=== PATIENT | male | born 1935 | race Caucasian/White ===

== ENCOUNTER → 2019-12-13 09:53 | Outpatient (BNVA) | payer MEDICARE, OTHER, SELFPAY | PROVIDERS: Family Provider Family Medicine; PCP Family Medicine; Visit Provider Nurse Practitioner Family | DX: I48.11 Longstanding persistent atrial fibrillation (principal); R73.9 Hyperglycemia, unspecified | CPT/HCPCS: 36416; 82962; 83036 ==

== ENCOUNTER 2020-06-01 11:11 | Emergency (ER) | payer MEDICARE, OTHER, SELFPAY ==
[2020-06-01] VITALS (8 sets, daily range): BP systolic 115–165; BP diastolic 69–102; PULSE 81–94; RESP 16–24; TEMP 36.6–36.8; O2SAT 92–99; BMI 26.6
--- NOTE | 2020-06-01 11:21 | CTR_ITS ---
PROCEDURE INFORMATION: Exam: CT Head Without Contrast Exam date and time: 06/01/2020 11:23 AM Age: 85 years old Clinical indication: Altered mental status/memory loss; Confusion or disorientation; Prior surgery; Surgery date: 6+ months; Surgery type: Carotid; Patient HX: HX of stroke, confusion started last night; Additional info: TIA TECHNIQUE: Imaging protocol: Computed tomography of the head without contrast. Radiation optimization: All CT scans at this facility use at least one of these dose optimization techniques: automated exposure control; mA and/or kV adjustment per patient size (includes targeted exams where dose is matched to clinical indication); or iterative reconstruction. COMPARISON: No relevant prior studies available. RADIATION DOSE METRICS: Total DLP (mGy-cm): 751.44 FINDINGS: Brain: No hemorrhage. 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 No mass effect. Ventricles: Normal. No ventriculomegaly. Bones/joints: Unremarkable. No acute fracture. Sinuses: No acute sinusitis. Mastoid air cells: Unremarkable. Soft tissues: Unremarkable. CT/CT head wo con* [id number] IMPRESSION: No acute intracranial abnormality. Radiation Dose CTDIVOL = (mGy): DLP = 751.44 (mGy-cm)
--- NOTE | 2020-06-01 11:22 | XRR_ITS ---
PROCEDURE INFORMATION: Exam: XR Chest, 1 View Exam date and time: 06/01/2020 11:43 AM Age: 85 years old Clinical indication: Other: TIA; Weakness; Patient HX: TIA; Confusion, weakness, numbness. HX of stroke TECHNIQUE: Imaging protocol: XR of the chest Views: 1 view. COMPARISON: No relevant prior studies available. FINDINGS: Lungs: Unremarkable. No consolidation. Pleural space: Unremarkable. No pleural effusion. No pneumothorax. Heart/Mediastinum: Borderline minimal cardiomegaly. Small hiatal hernia. Bones/joints: No acute findings. XR/XR chest 1V portable [id number] IMPRESSION: No acute findings.
--- NOTE | 2020-06-01 11:22 | ECG_ITS ---
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 Measurements Intervals [place] Rate: 68 P: [place]: -1 QRS: 76 QRSD: 100 T: 42 QT: 404 QTc: 432 Interpretive Statements ATRIAL FIBRILLATION ABNORMAL RHYTHM ECG No previous ECG available for comparison Electronically Signed On 06-01-2020 23:33:39 CDT by Tree Wakefield M.D. [id number]
[2020-06-01 11:46] LABS: Basophils % 0.4 %; Eosinophils # 0.2 10^3/uL (0.0-0.8); Eosinophils % 3.2 %; Hematocrit 47.1 % (42.0-52.0); Hemoglobin 14.9 g/dL (11.7-16.6); Lymphocytes # 1.2 10^3/uL (0.8-4.8); Lymphocytes % 20.9 %; Mean Corpuscular HGB Conc 31.6 g/dL (30.0-36.0); Mean Corpuscular Hemoglobin 29.3 pg (28.0-34.0); Mean Corpuscular Volume 92.7 fL (80-94); Mean Platelet Volume 11.5 fL (7.4-10.4); Monocytes # 0.5 10^3/uL (0.2-0.9); Monocytes % 8.3 %; Neutrophils # 3.71 10^3/uL (1.8-7.7); Nucleated Red Blood Cells % 0 %; Platelet Count 188 10^3/cmm (130-400); Red Blood Count 5.08 10^6/uL (4.1-5.3); Red Cell Distribution Width 12.5 % (12.1-15.1); White Blood Count 5.5 10^3/uL (4.0-10.0)
--- NOTE | 2020-06-01 11:55 | ED_ITS ---
HPI - Neuro Symptoms/Deficit General: Chief Complaint: Neuro Symptoms/Deficit Stated Complaint: poss stroke Time Seen by Provider: 06/01/20 11:16 History of Present Illness: HPI Narrative: This patient is an 85-year-old male presenting today with complaints that he thinks he had a stroke last night. He reports he was balancing his checkbook and was having trouble figuring out how to use the calculator and how to write numbers. He said whenever he tried to write just came out his jumble's. This went on for a few minutes and then stopped. He said he became weak and his head flopped over but he does not think he lost consciousness. He has been having some discomfort on the left side of his neck. He had a history of a prior stroke causing speech difficulties and some left sided numbness. Following that he was diagnosed with carotid stenoses bilaterally and had surgery to deal with that 8 or so years ago. He has not any problem since then. He feels like he might need more surgery as he was told that the carotid surgery only lasted about 10 years. He also has atrial fibrillation. He also says that his heart rate was high this morning. He does not have any other symptoms at this time. He went to his doctor's office and was told to come to the ED. He has not had any exposures to COVID that he knows of and said he is basically just been staying home. Location: other (Confusion, unable to write) History of same: Yes Severity: moderate Quality: weak Relieving factors: none Exacerbating factors: none Context: sudden onset On Anticoagulants: Yes (Full dose aspirin) Associated symptoms: Reports no associated symptoms; Deny chest pain, headache(s), malaise, nausea or vomiting Review of Systems General: Reports: 10 or more systems reviewed and unremarkable except in HPI and below Const: Denies: fever(s), chills, fatigue or malaise Eyes: Denies: change in vision ENMT: Denies: odynophagia Card: Denies: chest pain or swelling of feet/ankles Resp: Denies: dyspnea, productive cough or non-productive cough GI: Denies: abdominal pain, nausea or vomiting : Denies: flank pain Musc: Denies: neck pain or back pain Skin/Breast: Denies: rash Neuro: Denies: headache(s), numbness in extremities or weakness in extremities Marty/Lymph: Denies: easy bruising or easy bleeding PFS ED PFSH: Medical History Atrial fibrillation Social History Smoking and tobacco status: former smoker Alcohol intake: never Physical Exam Const: COMMON NORMALS: no acute distress, patient oriented x3, no limitations and alert GENERAL APPEARANCE: cooperative and comfortable HENMT: HEAD & SCALP: normal to inspection FACE & SINUS: normal facial exam Eye: GENERAL EYE: appearance normal, both eyes and all related structures Neck/C-Spine: COMMON NORMALS: supple, no meningeal signs and no JVD Chest: COMMONS NORMALS: normal inspection of the chest Resp: COMMON NORMALS: normal respiratory effort, No use of accessory muscles and clear to auscultation bilaterally AUSCULTATION: clear to auscultation bilaterally Cardio: COMMON NORMALS: no JVD, regular rate, regular rhythm and No murmurs present (Cardio) RATE: regular rate RHYTHM: regular rhythm GI: COMMON NORMALS: Normal to inspection, nondistended, normoactive bowel sounds present, Soft to palpation and non-tender INSPECTION: Yes normal to inspection AUSCULTATION: Yes normoactive bowel sounds PALPATION: Yes Soft to palpation Back/Pelvis: COMMON NORMALS: thoracic and lumbar spine normal to inspection Extremity: COMMON NORMALS: normal to inspection Neuro: COMMON NORMALS: patient oriented x3, moves all extremities, no focal motor deficits and no sensory deficits noted SENSORIUM/ORIENTATION: Yes alert MENINGEAL SIGNS: Yes no meningeal signs CRANIAL NERVES: Yes other (Very hard of hearing) Psych: COMMON NORMALS: mental status grossly normal, cooperative and normal affect Skin: COMMON NORMALS: no rashes or lesions noted and turgor normal GENERAL SKIN EXAM: no rashes or lesions noted and turgor normal Course ED course: CTA shows carotid stenosis, moderate in the left internal - with severe vertebral artery stenosis and mild right carotid stenosis. Patient wanted to go to [place] if transfer was required - and I spoke with Dr. Ponce. As the patient is now asymptomatic - he would like to see him as an outpatient in his office. Suggested starting plavix and he provided his cell phone number for the patient to call if any issues over the weekend. Patient understands return precautions. Vital Signs: Vital signs: Vital Signs Temperature 97.8 F 06/01/20 16:13 Pulse Rate 81 06/01/20 16:13 Respiratory Rate 18 06/01/20 16:13 Blood Pressure 165/102 06/01/20 16:13 Pulse Oximetry 99 06/01/20 16:13 MDM - Neuro Symptoms/Deficit Lab Data: Labs: Lab Results 06/01/20 06/01/20 06/01/20 Range/Units 11:38 11:38 11:38 WBC 5.5 (4.0-10.0) 10^3/ uL RBC 5.08 (4.1-5.3) 10^6/u L Hgb 14.9 (11.7-16.6) g/dL Hct 47.1 (42.0-52.0) % MCV 92.7 (80-94) fL MCH 29.3 (28.0-34.0) pg MCHC 31.6 (30.0-36.0) g/dL RDW 12.5 (12.1-15.1) % Plt Count 188 (130-400) 10^3/c mm MPV 11.5 H (7.4-10.4) fL Neut % (Auto) 67.0 % Lymph % (Auto) 20.9 % Marshall % (Auto) 8.3 % Eos % (Auto) 3.2 % Baso % (Auto) 0.4 % Neut # (Auto) 3.71 (1.8-7.7) 10^3/u L Lymph # (Auto) 1.2 (0.8-4.8) 10^3/u L Marshall # (Auto) 0.5 (0.2-0.9) 10^3/u L Eos # (Auto) 0.2 (0.0-0.8) 10^3/u L Baso # (Auto) 0.0 (0.0-0.1) 10^3/u L Nucleated RBC % (a uto) 0 % Nucleated RBCs # 0.0 /100WBC Sodium 137 (136-145) mmol/L Potassium 4.3 (3.5-5.1) mmol/L Chloride 102 (98-107) mmol/L Carbon Dioxide 24 (22-29) mmol/L Anion Gap 15.3 (5-19) BUN 16 (8-23) mg/dL Creatinine 1.2 (0.7-1.2) mg/dL Glucose 98 (65-115) mg/dL POC Glucose (70-110) mg/dL Calculated Osmolal ity 280 L (285-295) mOsm/k g Calcium 8.6 (8.5-10.5) mg/dL Total Bilirubin 0.4 (0.15-1.2) mg/dL AST 18 (0-40) U/L ALT 16 (0-41) U/L Alkaline Phosphata se 74 (40-130) IU/L Troponin T Baselin e 24 H (0-15) ng/L Troponin T 120 Min [place] (0-15) ng/L Delta Troponin T (0-10) ABS# Total Protein 7.4 (6.6-8.7) g/dL Albumin 4.1 (3.5-5.2) g/dL Globulin 3.3 (1.3-4.6) g/dL Urine Color (Yellow) Urine Appearance (CLEAR) Urine pH (5-7) Ur Specific Gravit y (1.005-1.030) Urine Protein (Negative) Urine Glucose (UA) (Normal) Urine Ketones (Negative) Urine Blood (Negative) Urine Nitrate (Negative) Urine Bilirubin (NEGATIVE) Urine Urobilinogen (Negative) mg/dL Ur Leukocyte Edda ase (Negative) Urine RBC (0-2) /hpf Urine WBC (0-5) /hpf Ur Squamous Epith Cells (0-5) Amorphous Sediment Urine Bacteria (NONE) 06/01/20 06/01/20 06/01/20 Range/Units 12:08 13:23 13:35 WBC (4.0-10.0) 10^3/ uL RBC (4.1-5.3) 10^6/u L Hgb (11.7-16.6) g/dL Hct (42.0-52.0) % MCV (80-94) fL MCH (28.0-34.0) pg MCHC (30.0-36.0) g/dL RDW (12.1-15.1) % Plt Count (130-400) 10^3/c mm MPV (7.4-10.4) fL Neut % (Auto) % Lymph % (Auto) % Marshall % (Auto) % Eos % (Auto) % Baso % (Auto) % Neut # (Auto) (1.8-7.7) 10^3/u L Lymph # (Auto) (0.8-4.8) 10^3/u L Marshall # (Auto) (0.2-0.9) 10^3/u L Eos # (Auto) (0.0-0.8) 10^3/u L Baso # (Auto) (0.0-0.1) 10^3/u L Nucleated RBC % (a uto) % Nucleated RBCs # /100WBC Sodium (136-145) mmol/L Potassium (3.5-5.1) mmol/L Chloride (98-107) mmol/L Carbon Dioxide (22-29) mmol/L Anion Gap (5-19) BUN (8-23) mg/dL Creatinine (0.7-1.2) mg/dL Glucose (65-115) mg/dL POC Glucose 88 (70-110) mg/dL Calculated Osmolal ity (285-295) mOsm/k g Calcium (8.5-10.5) mg/dL Total Bilirubin (0.15-1.2) mg/dL AST (0-40) U/L ALT (0-41) U/L Alkaline Phosphata se (40-130) IU/L Troponin T Baselin e (0-15) ng/L Troponin T 120 Min [place] 22.62 H (0-15) ng/L Delta Troponin T -1.38 L (0-10) ABS# Total Protein (6.6-8.7) g/dL Albumin (3.5-5.2) g/dL Globulin (1.3-4.6) g/dL Urine Color Yellow (Yellow) Urine Appearance Clear (CLEAR) Urine pH 6 (5-7) Ur Specific Gravit y 1.010 (1.005-1.030) Urine Protein 1+ H (Negative) Urine Glucose (UA) Norm (Normal) Urine Ketones Negative (Negative) Urine Blood Neg (Negative) Urine Nitrate Negative (Negative) Urine Bilirubin Neg (NEGATIVE) Urine Urobilinogen Norm (Negative) mg/dL Ur Leukocyte Edda ase Negative (Negative) Urine RBC Rare (0-2) /hpf Urine WBC Rare (0-5) /hpf Ur Squamous Epith Cells None (0-5) Amorphous Sediment Not Reportable Urine Bacteria Trace (NONE) EKG Data^: EKG 1: EKG interpretation time: 12:16 Interpretation: Atrial fibrillation with a rate of 68. No acute ST T wave changes. QRS duration is 100 ms. Discharge Plan Discharge Patient Disposition: Home, Self-Care Clinical Impression: Brain TIA Carotid artery stenosis, symptomatic Qualifiers: Laterality: left Qualified Code(s): I65.22 - Occlusion and stenosis of left carotid artery Condition: Stable Prescriptions: New clopidogrel 75 mg tablet 75 mg PO DAILY Qty: 30 RF: 0 No Action clonidine HCl 0.1 mg tablet 0.1 mg PO Q6H PRN (Reason: BP) RF: 0 aspirin 325 mg tablet 325 mg PO DAILY RF: 0 atenolol 25 mg tablet 25 mg PO .COMPLEX PRN (Reason: BP) RF: 0 hydrochlorothiazide 12.5 mg tablet 12.5 mg PO QAM Qty: 90 RF: 2 tamsulosin 0.4 mg capsule 0.4 mg PO DAILY Qty: 90 RF: 3 finasteride 5 mg tablet 5 mg PO DAILY Qty: 90 RF: 3 cetirizine 10 mg Tablet 10 mg PO DAILY RF: 0 Stool Softener 100 mg Capsule 100 mg PO DAILY RF: 0 nifedipine 90 mg tablet extended release 90 mg PO DAILY RF: 0 Discharge Orders: Discharge Order (Routine); Ordered 06/01/20 Ordered By: Giulia Murry Referrals: Alan Ponce Jr, MD [Referring] - 4-7 days (Call the office on Thursday morning to schedule an appointment. You can reach Dr. Ponce on his cell phone if you have any problems over the weekend. [phone]) Willian Sky DO [Primary Care Provider] - Discharge Diet: Usual diet Discharge Activity: Resume usual activity Patient Instructions: Transient Ischemic Attack (ED), Carotid Artery Disease (GEN) Activity Restrictions/Additional Instructions: Continue to take your aspirin daily. Start taking the clopidogrel (Plavix) tomorrow. Follow-up with Dr. Ponce next week to arrange management of your carotid blockage. Return to the emergency department immediately if any further symptoms of stroke or any other concerns. Discharge Date/Time: 06/01/20 16:14 Coding Level of Care Code ED Student Services Vice President for Chg Fwd Exam Comprehensive
[2020-06-01 12:05] LABS: Alanine Aminotransferase 16 U/L (0-41); Albumin Level 4.1 g/dL (3.5-5.2); Alkaline Phosphatase 74 IU/L (40-130); Anion Gap 15.3 (5-19); Aspartate Amino Transferase 18 U/L (0-40); Blood Urea Nitrogen 16 mg/dL (8-23); Calcium 8.6 mg/dL (8.5-10.5); Carbon Dioxide 24 mmol/L (22-29); Chloride 102 mmol/L (98-107); Globulin 3.3 g/dL (1.3-4.6); Glucose 98 mg/dL (65-115); Osmolality Calculated 280 mOsm/kg (285-295); Potassium 4.3 mmol/L (3.5-5.1); Sodium 137 mmol/L (136-145); Total Bilirubin 0.4 mg/dL (0.15-1.2); Total Protein 7.4 g/dL (6.6-8.7)
--- NOTE | 2020-06-01 12:09 | PC.NURSE ---
EKG done at 1207 and shown to ER doctor and blood glucose is 88, doctor is aware
[2020-06-01 12:12] LABS: Glucose Point of Care 88 mg/dL (70-110)
--- NOTE | 2020-06-01 12:48 | CTR_ITS ---
PROCEDURE INFORMATION: Exam: CT Angiography Head With Contrast Exam date and time: 06/01/2020 12:54 PM Age: 85 years old Clinical indication: Weakness; Prior surgery; Surgery date: 6+ months; Surgery type: Carotid surgery; Additional info: TIA, h/o carotid disease TECHNIQUE: Imaging protocol: Computed tomography angiography of the head with intravenous contrast. 3D rendering: MIP reconstructed images were created by the technologist. Radiation optimization: All CT scans at this facility use at least one of these dose optimization techniques: automated exposure control; mA and/or kV adjustment per patient size (includes targeted exams where dose is matched to clinical indication); or iterative reconstruction. Contrast material: Vispaque; Contrast volume: 95 ml; Contrast route: INTRAVENOUS (IV); COMPARISON: CT head wo con* [id number] 06/01/2020 11:22 AM RADIATION DOSE METRICS: Total DLP (mGy-cm): 817 FINDINGS: Anterior cerebral arteries: No occlusion or significant stenosis. No aneurysm. Right internal carotid artery: Right internal carotid artery siphon atherosclerotic calcification, less than 50% stenoses. Right middle cerebral artery: No occlusion or significant stenosis. No aneurysm. Right posterior cerebral artery: No occlusion or significant stenosis. No aneurysm. Right vertebral artery: Small caliber right vertebral artery ending as the posterior inferior cerebellar artery, normal variant. No stenosis. Left internal carotid artery: 50-69% stenoses left cavernous and clinoid internal carotid artery. Left middle cerebral artery: No occlusion or significant stenosis. No aneurysm. Left posterior cerebral artery: No occlusion or significant stenosis. No aneurysm. Left vertebral artery: Left vertebral artery dominance, a normal variant. V4 segment atherosclerotic calcification, less than 30% stenosis. Basilar artery: No occlusion or significant stenosis. No aneurysm. IMPRESSION: 1. 50-69% stenoses left cavernous and clinoid internal carotid artery segments. 2. No acute intracranial vascular abnormality identified. PROCEDURE INFORMATION: Exam: CT Angiography Neck With Contrast Exam date and time: 06/01/2020 12:54 PM Age: 85 years old Clinical indication: Weakness; Prior surgery; Surgery date: 6+ months; Surgery type: Carotid surgery; Additional info: TIA, h/o carotid disease TECHNIQUE: Imaging protocol: Computed tomography angiography of the neck with intravenous contrast. 3D rendering: MIP reconstructed images were created by the technologist. Radiation optimization: All CT scans at this facility use at least one of these dose optimization techniques: automated exposure control; mA and/or kV adjustment per patient size (includes targeted exams where dose is matched to clinical indication); or iterative reconstruction. Contrast material: Vispaque; Contrast volume: 95 ml; Contrast route: INTRAVENOUS (IV); COMPARISON: CT head wo con* [id number] 06/01/2020 11:22 AM RADIATION DOSE METRICS: Total DLP (mGy-cm): 2178.91 FINDINGS: Right common carotid artery: No stenosis. No dissection or occlusion. Right internal carotid artery: Right neck surgical clips (previous endarterectomy). Mild proximal right internal carotid artery intimal calcification. Right external carotid artery: No occlusion or stenosis of the origin. Right vertebral artery: Small caliber right vertebral artery ending as the posterior inferior cerebellar artery, normal variant. No stenosis. Left common carotid artery: No stenosis. No dissection or occlusion. Left internal carotid artery: Moderate proximal left internal carotid artery atherosclerotic calcification, less than 30% stenosis. Distal left internal carotid artery calcified plaque, less than 25% stenosis. Left external carotid artery: No occlusion or stenosis of the origin. Left vertebral artery: Severe stenosis left vertebral artery origin, with atherosclerotic plaque (series 601, image 46). Left vertebral artery dominance, a normal variant. No stenosis. Dental: Edentulous maxilla and mandible. Bones/joints: Multilevel cervical spondylosis, neural foraminal stenoses and facet primary osteoarthritis. Soft tissues: Normal. No significant soft tissue swelling. Lungs: Paraseptal emphysema bilaterally. CT/CT angio headneck* [id number] IMPRESSION: 1. Severe stenosis left vertebral artery origin. 2. No acute extracranial vascular abnormality identified. 3. Pulmonary emphysema. REFERENCES: NASCET CRITERIA. The degree of internal carotid artery stenosis is based on NASCET criteria. Normal is no stenosis. Mild is less than 50% stenosis. Moderate is 50-69% stenosis. Severe is 70% to 99% stenosis. Total occlusion is no detectable patent lumen. Radiation Dose CTDIVOL = (mGy): DLP = 817~2178.91 (mGy-cm)
--- NOTE | 2020-06-01 12:48 | PC.NURSE ---
Patient asked to give urine sample. Patient tried but unable to urinate at this time.
[2020-06-01] MEDS: iodixanol 320 mg/mL 100mL Btl 95 ML IV (13:08)
--- NOTE | 2020-06-01 13:22 | ECG_ITS ---
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 Measurements Intervals [place] Rate: 71 P: CT: -1 QRS: 73 QRSD: 98 T: 42 QT: 396 QTc: 433 Interpretive Statements ATRIAL FIBRILLATION WITH ABERRANT CONDUCTION OR VENTRICULAR PREMATURE COMPLEXES ABNORMAL RHYTHM ECG Compared to ECG 06/01/2020 12:13:00 Ventricular premature complex(es) now present Aberrant conduction of supraventricular beat(s) now present Electronically Signed On 06-01-2020 23:49:51 CDT by Tree Wakefield M.D. [email or web address] [email or web address] [email or web address]/[id number]
[2020-06-01 13:44] LABS: Add Urine Microscopic? YES; Bilirubin Urine Neg (NEGATIVE); Blood Urine Neg (Negative); Glucose Urine UA Norm (Normal); Ketones Urine Negative (Negative); Leukocyte Esterase Urine Negative (Negative); Nitrate Urine Negative (Negative); Protein Urine 1+ (Negative); Urine Appearance Clear (CLEAR); Urine Color Yellow (Yellow); Urobilinogen Urine Norm (Negative); pH Urine 6 (5-7)
[2020-06-01 13:49] LABS: Add Urine Culture? No; Bacteria Urine TRACE; RBC Urine RARE /hpf (0-2); WBC Urine RARE /hpf (0-5)
--- NOTE | 2020-06-01 13:50 | PC.NURSE ---
EKG done at 1338 and shown to Er doctor
[2020-06-01 13:51] LABS: Troponin(5th) Baseline 24 ng/L (0-15)
[2020-06-01 13:58] LABS: Troponin 5 2HR 22.62 ng/L (0-15)
[2020-06-01 14:07] LABS: Troponin 5 2HR Delta -1.38 ABS# (0-10)
== END 2020-06-01 16:14 | disposition home or self-care (01) ==
PROVIDERS: Emergency Provider Emergency Medicine; Family Provider Family Medicine; PCP Family Medicine
DX: I65.22 Occlusion and stenosis of left carotid artery (principal); G45.9 Transient cerebral ischemic attack, unspecified; Z79.82 Long term (current) use of aspirin; I48.91 Unspecified atrial fibrillation; Z87.891 Personal history of nicotine dependence
CPT/HCPCS: 12345; 36416; 70450; 70496; 70498; 71045; 80053; 81001; 81003; 82962; 84484; 85025; 93005; 99283; 99284; Q9967

== ENCOUNTER 2022-12-25 08:35 | Emergency (ER) | payer MEDICARE, OTHER, SELFPAY ==
--- NOTE | 2022-12-25 08:44 | ECG_ITS ---
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 Measurements Intervals [place] Rate: 51 P: 0 VA: 0 QRS: 78 QRSD: 129 T: 89 QT: 454 QTc: 418 Interpretive Statements UNCERTAIN IRREGULAR RHYTHM RIGHT BUNDLE BRANCH BLOCK [120+ ms QRS DURATION, UPRIGHT V1, 40+ ms S IN I/aVL/V4/V5/V6] MARKED ST ELEVATION, CONSIDER ANTERIOR INJURY [MARKED ST ELEVATION W/O NORMALLY INFLECTED T-WAVE IN V2-V5] ACUTE CA Compared to ECG 06/01/2020 13:45:50 Right bundle-branch block now present ST (T wave) deviation now present Myocardial infarct finding now present Atrial fibrillation no longer present Ventricular premature complex(es) no longer present Aberrant conduction of supraventricular beat(s) no longer present Electronically Signed On 12-26-2022 7:58:04 YARD LABORER by Lesly Le M.D. [id number]
--- NOTE | 2022-12-25 08:49 | ECG_ITS ---
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 Measurements Intervals [place] Rate: 63 P: 0 NE: 0 QRS: 95 QRSD: 84 T: 40 QT: 411 QTc: 423 Interpretive Statements ATRIAL FIBRILLATION BORDERLINE RIGHT AXIS DEVIATION [QRS AXIS > 90] LOW QRS VOLTAGE IN PRECORDIAL LEADS [QRS DEFLECTION < 1.0 mV IN CHEST LEADS] POSSIBLE RIGHT VENTRICULAR CONDUCTION DELAY [RSR (QR) IN V1/V2] MARKED ST ELEVATION, CONSIDER ANTEROSEPTAL INJURY [MARKED ST ELEVATION W/O NORMALLY INFLECTED T-WAVE IN V1-V4] ACUTE VA Compared to ECG 12/25/2022 08:44:21 Low QRS voltage now present Right bundle-branch block no longer present Myocardial infarct finding still present ST (T wave) deviation still present Electronically Signed On 12-26-2022 8:15:39 TAFFY CANDY MAKER by Lesly Le M.D. [id number]
--- NOTE | 2022-12-25 08:57 | ECG_ITS ---
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 Measurements Intervals [place] Rate: 73 P: 0 DC: 0 QRS: 97 QRSD: 107 T: 76 QT: 323 QTc: 357 Interpretive Statements POSSIBLE ATRIAL FIBRILLATION BORDERLINE RIGHT AXIS DEVIATION [QRS AXIS > 90] LOW QRS VOLTAGE IN PRECORDIAL LEADS [QRS DEFLECTION < 1.0 mV IN CHEST LEADS] POSSIBLE RIGHT VENTRICULAR CONDUCTION DELAY [RSR (QR) IN V1/V2] MARKED ST ELEVATION, CONSIDER ANTEROSEPTAL INJURY ACUTE ID Compared to ECG 12/25/2022 08:49:27 Ventricular premature complex(es) now present Atrial fibrillation no longer present Myocardial infarct finding still present ST (T wave) deviation still present Electronically Signed On 12-26-2022 8:15:28 TUBE WINDER by Lesly Le M.D. [id number]
[2022-12-25 09:06] LABS: Glucose Point of Care 40 mg/dL (70-110)
--- NOTE | 2022-12-25 09:10 | ECG_ITS ---
[facility] Test Date: 2022-12-25 Pat Name: Delano Hill Department: Room: Gender: Male Auto Porter: : 1935 Requested By: Ewa Azevedo Order Number: [id number] Natarajan MD: Lesly Le M.D. Measurements Intervals [place] Rate: 53 P: 0 WV: 0 QRS: 101 QRSD: 195 T: 208 QT: 443 QTc: 417 Interpretive Statements ATRIAL FIBRILLATION WITH SLOW VENTRICULAR RESPONSE RIGHT AXIS DEVIATION [QRS AXIS > 100] RIGHT BUNDLE BRANCH BLOCK ST ELEVATION, CONSIDER ANTERIOR INJURY ACUTE NE Compared to ECG 12/25/2022 08:57:06 Right bundle-branch block now present Sinus rhythm no longer present Ventricular premature complex(es) no longer present ST (T wave) deviation still present Myocardial infarct finding still present Electronically Signed On 12-26-2022 7:57:52 CLINIC RECEPTIONIST by Lesly Le M.D. [id number]
--- NOTE | 2022-12-25 09:26 | PC.PHAR ---
unable to verify medications with pt-medications entered are meds from what ext med history shows filled recently and from what office reconciled on 12/22/22 notes are made in the pharmacy comments-called [facility] pharmacy states they have no allergies listed for the pt-called [facility] for allergy list [facility] couldnt find account for pt-called office [phone] states only has nitro stops heart-
[2022-12-25 09:28] LABS: Basophils % 0.3 %; Eosinophils % 0.1 %; Hematocrit 40.2 % (42.0-52.0); Hemoglobin 9.3 g/dL (11.7-16.6); Lymphocytes # 1.9 10^3/uL (0.8-4.8); Lymphocytes % 19.2 %; Mean Corpuscular HGB Conc 23.1 g/dL (30.0-36.0); Mean Corpuscular Hemoglobin 18.2 pg (28.0-34.0); Mean Corpuscular Volume 78.5 fl (80-94); Monocytes % 19.4 %; Neutrophils # 5.96 10^3/uL (1.8-7.7); Neutrophils % 59.3 %; Nucleated Red Blood Cells # 0.4 /100WBC; Nucleated Red Blood Cells % 3.7 %; Platelet Count 194 10^3/cmm (130-400); Red Blood Count 5.12 10^6/uL (4.1-5.3); Red Cell Distribution Width 20.3 % (12.1-15.1); White Blood Count 10.1 10^3/uL (4.0-10.0)
[2022-12-25 09:29] LABS: Alanine Aminotransferase 1086 U/L (0-41); Albumin Level 3.7 g/dL (3.5-5.2); Alkaline Phosphatase 95 U/L (40-130); Anion Gap 36.6 (5-19); Blood Urea Nitrogen 30 mg/dL (8-23); Calcium 8.6 mg/dL (8.5-10.5); Chloride 99 mmol/L (98-107); Glucose 43 mg/dL (65-115); Osmolality Calculated 289 mOsm/kg (285-295); Potassium 5.6 mmol/L (3.5-5.1); Sodium 138 mmol/L (136-145); Total Bilirubin 1.3 mg/dL (0.15-1.2); Total Protein 6.7 g/dL (6.6-8.7)
--- NOTE | 2022-12-25 09:29 | W.ED.GENADLT ---
HPI - General Adult General: Chief complaint: Cardiac Arrest/CPR Stated complaint: CODE BLUE Time Seen by Provider: 12/25/22 09:28 Source: EMS Mode of arrival: EMS History of Present Illness: 87-year-old male presents to the emergency room intubated brought in by EMS. Patient was initially noted to be bradycardic. EMS did not have a twelve-lead. His heart rate had dropped below 20 they began CPR and a request started dopamine while in route. On arrival here I found him to be pulseless. CPR was started. See the code documentation. Review of Systems General: Reports: ROS unobtainable due to endotracheal tube [facility] ED PFSH: Medical History Anemia Atrial fibrillation Social History Smoking and tobacco status: former smoker Alcohol intake: never Supplemental [facility] Information: due to endotracheal tube Physical Exam Narrative: EXAM NARRATIVE: Intermittently were able to palpate pulses no auscultated heart sounds. At the end of the code demonstrated no active cardiac activity by bedside ultrasound. No spontaneous respiratory effort during the code. Course Vital Signs: Vital signs: Vital Signs Temperature 97.9 F 12/25/22 09:42 Pulse Rate 35 L 12/25/22 09:42 Respiratory Rate 15 12/25/22 09:42 Blood Pressure 180/86 12/25/22 09:42 Pulse Oximetry 95 12/25/22 09:42 Oxygen Delivery Me thod 12/25/22 09:42 MDM - General Adult Medical Decision Making Patient arrived in cardiorespiratory arrest. Initial EKG delayed due to cardiac arrest and ongoing CPR and ACLS protocols. Achieved ROSC multiple times EKGs done during that time showed an acute DC in the anterior leads. I had staff bring the EKG to Dr. Jacinto who was in the case in the [facility]. The verbal report I received back to that Dr. Jacinto agreed that there was a acute DC however at the time the patient is not stable enough to consider proceeding to the [facility]. Patient's bradycardia when ROSC was achieved was treated with dopamine however it failed to maintain his heart rate. Patient was switched to Levophed drips and added epinephrine drip, we able to maintain ROSC for a longer period of time by titrating up to max doses of both agents. Patient also had hypocalcemia hyperkalemia and hypoglycemia all of these were treated as per standard ACLS protocols. Despite our efforts patient was unable to achieve and maintain ROSC, he became bradycardic and eventually pulse was lost patient was noted to be in PEA then asystole. Resuscitative efforts were eventually ceased. Initially family called multiple times insisting that all possible efforts to be made to resuscitate the patient. I did talk to them on the phone they changes her mind slightly and did not wanted to be on ventilator advised him that he was already intubated. By this time we had been working in the patient for nearly an hour ultimately we decided resuscitative efforts were not resulting in any positive improvements. Resuscitative efforts ceased. Medical Records I reviewed the patient's medical records. Lab Data I reviewed the patient's lab results. 12/25/22 08:40 12/25/22 08:40 Laboratory Results WBC 10.1 10^3/uL (4.0-10.0) H 12/25/22 08:40 RBC 5.12 10^6/uL (4.1-5.3) 12/25/22 08:40 Hgb 9.3 g/dL (11.7-16.6) L 12/25/22 08:40 Hct 40.2 % (42.0-52.0) L 12/25/22 08:40 MCV 78.5 fl (80-94) L 12/25/22 08:40 MCH 18.2 pg (28.0-34.0) L 12/25/22 08:40 MCHC 23.1 g/dL (30.0-36.0) L 12/25/22 08:40 RDW 20.3 % (12.1-15.1) H 12/25/22 08:40 Plt Count 194 10^3/cmm (130-400) 12/25/22 08:40 MPV Not Reportable 12/25/22 08:40 Neut % (Auto) 59.3 % 12/25/22 08:40 Lymph % (Auto) 19.2 % 12/25/22 08:40 [place] % (Auto) 19.4 % 12/25/22 08:40 Eos % (Auto) 0.1 % 12/25/22 08:40 Baso % (Auto) 0.3 % 12/25/22 08:40 Neut # (Auto) 5.96 10^3/uL (1.8-7.7) 12/25/22 08:40 Lymph # (Auto) 1.9 10^3/uL (0.8-4.8) 12/25/22 08:40 [place] # (Auto) 2.0 10^3/uL (0.2-0.9) H 12/25/22 08:40 Eos # (Auto) 0.0 10^3/uL (0.0-0.8) 12/25/22 08:40 Baso # (Auto) 0.0 10^3/uL (0.0-0.1) 12/25/22 08:40 Nucleated RBC % (auto) 3.7 % 12/25/22 08:40 Nucleated RBCs # 0.4 /100WBC 12/25/22 08:40 PT 32.70 SECONDS (12.1-14.9) H 12/25/22 08:40 INR 3.05 (0.8-1.2) H 12/25/22 08:40 APTT 39.1 SECONDS (23.9-36.7) H 12/25/22 08:40 Specimen Type Arterial 12/25/22 08:40 Sample Site Brachial, left 12/25/22 08:40 ABG pH 6.74 (7.35-7.45) L* 12/25/22 08:40 ABG pCO2 56.9 mmHg (35-45) H 12/25/22 08:40 ABG pO2 87.4 mmHg (80.0-100.0) 12/25/22 08:40 ABG HCO3 7.7 mmol/L (22-26) L 12/25/22 08:40 ABG O2 Saturation 79.5 12/25/22 08:40 ABG Base Excess -26.9 mmol/L (-2.0-2.0) L 12/25/22 08:40 Hugo Test Pos 12/25/22 08:40 A-a O2 Gradient 72.0 mmHg (5-10) H 12/25/22 08:40 Hematocrit 27.4 % (42-52) L 12/25/22 08:40 Hgb O2 Saturation 78.7 % (95-100) L 12/25/22 08:40 Carboxyhemoglobin 1.1 %THgb (0.4-20.1) 12/25/22 08:40 Methemoglobin < 0.0 % (0.4-1.5) L 12/25/22 08:40 Total Hemoglobin 8.9 g/dL (14-18) L 12/25/22 08:40 Sodium 141.0 mmol/L (131-143) 12/25/22 08:40 Potassium 6.0 mmol/L (3.5-5.0) H 12/25/22 08:40 Glucose 30.0 mg/dL (70-115) L 12/25/22 08:40 Ionized Calcium 1.1 mmol/L (1.1-1.4) 12/25/22 08:40 O2 Delivery Device Ambu 12/25/22 08:40 O2 Liters/Min 15.0 % 12/25/22 08:40 FiO2 100.0 % 12/25/22 08:40 [employer]eral [employer] Manager ID Cak 12/25/22 08:40 Sodium 138 mmol/L (136-145) 12/25/22 08:40 Potassium 5.6 mmol/L (3.5-5.1) H 12/25/22 08:40 Chloride 99 mmol/L (98-107) 12/25/22 08:40 Carbon Dioxide 8 mmol/L (22-29) L* 12/25/22 08:40 Anion Gap 36.6 (5-19) H 12/25/22 08:40 BUN 30 mg/dL (8-23) H 12/25/22 08:40 Creatinine 2.3 mg/dL (0.7-1.2) H 12/25/22 08:40 GFR Calculation Not Reportable 12/25/22 08:40 Glucose 43 mg/dL (65-115) L 12/25/22 08:40 POC Glucose 40 mg/dL (70-110) L 12/25/22 09:02 Calculated Osmolality 289 mOsm/kg (285-295) 12/25/22 08:40 Calcium 8.6 mg/dL (8.5-10.5) 12/25/22 08:40 Total Bilirubin 1.3 mg/dL (0.15-1.2) H 12/25/22 08:40 AST 1221 U/L (0-40) H 12/25/22 08:40 ALT 1086 U/L (0-41) H 12/25/22 08:40 Alkaline Phosphatase 95 U/L (40-130) 12/25/22 08:40 Creatine Kinase 506 U/L (39-308) H* 12/25/22 08:40 CK-MB (CK-2) Cancelled 12/25/22 08:40 CK-MB (CK-2) Rel Index Cancelled 12/25/22 08:40 Troponin T Baseline 659 ng/L (0-15) H* 12/25/22 08:40 NT-Pro-B Natriuret Pep 74469 pg/mL (0-450) H 12/25/22 08:40 Total Protein 6.7 g/dL (6.6-8.7) 12/25/22 08:40 Albumin 3.7 g/dL (3.5-5.2) 12/25/22 08:40 Globulin 3.0 g/dL (1.3-4.6) 12/25/22 08:40 Critical Care Time Critical Care Time: Critical Care Time: Yes Total Critical Care Time: 60 Attestation: The high probability of a clinically significant, sudden or life threatening deterioration of the patient's cardiovascular system(s) required my full and direct attention, intervention and personal management. The critical care time is as shown. This time is in addition to time spent performing any reported procedures but includes the following: [x] Data and vital sign review and interpretation [x] Patient assessment, examination and intervention [x] Documentation [x] Medication orders and management Discharge Plan Discharge Patient Disposition: Clinical Impression: Acute myocardial infarction Condition: Stable Prescriptions: No Action atenolol 25 mg tablet 25 mg PO .COMPLEX PRN (Reason: BP) Rx Instructions: 25 mg PO DAILY PRN esomeprazole magnesium [Nexium 24HR] 20 mg capsule,delayed release(DR/EC) 20 mg PO DAILY Eliquis 5 mg tablet 5 mg PO BID Qty: 10 3RF docusate sodium [Stool Softener] 100 mg Capsule 100 mg PO DAILY moxifloxacin 0.5 % drops 1 drp ophthalmic (eye) TID Rx Instructions: left eye tamsulosin 0.4 mg capsule 0.4 mg PO DAILY nifedipine 90 mg tablet extended release 24hr 90 mg PO DAILY hydrochlorothiazide 12.5 mg tablet 12.5 mg PO DAILY finasteride 5 mg tablet 5 mg PO DAILY Referrals: Willian Sky DO [Primary Care Provider] - Coding Level of Care Code ED Supervisor Beater Room for Christa Andrade
[2022-12-25 09:31] LABS: Aspartate Amino Transferase 1221 U/L (0-40)
[2022-12-25 09:32] LABS: ABG PCO2 56.9 mmHg (35-45); Arterial Blood Gas Hematocrit 27.4 % (42-52); Base Excess ABG -26.9 mmol/L (-2.0-2.0); Blood Gas Allen Test Pos; Blood Gas Operator Identificat CAK; Blood Gas Sample Site Brachial, left; Blood Gas Sample Type Arterial; Carbon Dioxide 8 mmol/L (22-29); Carboxyhemoglobin 1.1 %THgb (0.4-20.1); HCO3 ABG 7.7 mmol/L (22-26); HGB O2 Sat 78.7 % (95-100); Ionized Calcium Level - ABG 1.1 mmol/L (1.1-1.4); Methemoglobin < 0.0 % (0.4-1.5); Oxygen Device AMBU; Oxygen Saturation ABG 79.5; PO2 ABG 87.4 mmHg (80.0-100.0); Total Hemoglobin 8.9 g/dL (14-18)
[2022-12-25 09:33] LABS: Creatine Phosphokinase 506 U/L (39-308)
[2022-12-25 09:34] LABS: ABG PH Result 6.74 (7.35-7.45); Troponin(5th) Baseline 659 ng/L (0-15)
[2022-12-25 09:36] LABS: INR 3.05 (0.8-1.2)
[2022-12-25 09:37] LABS: Partial Thromboplastin Time 39.1 SECONDS (23.9-36.7)
[2022-12-25 09:42] VITALS: BP 180/86; PULSE 35; RESP 15; TEMP 36.6; O2SAT 95; BMI 24.3
[2022-12-25 09:56] LABS: NT Pro B Type Natriuretic Pept 12604 pg/mL (0-450)
--- NOTE | 2022-12-25 10:36 | PC.NURSE ---
0832 EMS to ER 0833 CPR started (PEA) 0834 Epi 1mg - stop EMS Dopamine 0835 Pulse check - Asystole 0836 Epi 1mg, IO right tibia 0837 Pulse check - ROSC HR 57, 1L fluids, nascimento placed, 20g IV Left AC placed 0840 EKG (Afib with ST elevation 0842 0.5mg atropine (HR 43), Dopamine started 0.5, Levo started 2 0845 Dopamine increased to 0.7, 1L fluids on pressure bag started. 0846 PEA resume CPR, Epi 1mg 0848 pulse check - continue CPR; 2nd EKG 0850 OG placed 0851 Pulse check, pt asystole, CPR continues 0853 Pulse check - ROSC 0859 Pulse check - PEA, CPR resumes 0901 Pulse check - PEA; EPI 1mg, Calcium 1g, Sodium Bicarb 50 mEq 0905 1 amp D50 0906 levo increased 12 0907 Epi drip started 0.25 0910 EKG; atropine 1mg 0911 Plavix 600 and Aspirin given 325 0912 5000 Heprin given 0913 Epi drip increased to 0.5 0918 CPR discontinued 0922 TOD Nurses present: Giana Galan, FABI; Guy Goff, RN; Janice Mejias, RN; Valeria Roman, RN; Hannah Verdugo, material handler 2nd shift Doctor: Kamini Hdz DO
--- NOTE | 2022-12-25 12:16 | PC.NURSE ---
MTS notified of patient @2751
--- NOTE | 2022-12-25 12:17 | PC.NURSE ---
MTS released @1215. home notified.
== END 2022-12-25 12:09 | disposition expired ==
PROVIDERS: Nurse Practitioner Family; Emergency Provider Family Medicine; PCP Family Medicine
DX: I21.9 Acute myocardial infarction, unspecified (principal); Z79.01 Long term (current) use of anticoagulants; Z87.891 Personal history of nicotine dependence
CPT/HCPCS: 36416; 36600; 51702; 80051; 80053; 82330; 82550; 82805; 82962; 83880; 84484; 85025; 85610; 85730; 93005; 94002; 99291